=== PATIENT | male | born 1960 | race Caucasian/White ===

== ENCOUNTER → 2023-09-29 14:18 | Outpatient (BNVA) | payer OTHER, SELFPAY | PROVIDERS: Visit Provider Surgery | DX: K82.4 Cholesterolosis of gallbladder | CPT/HCPCS: 99203 ==

== ENCOUNTER 2023-10-26 08:22 | Outpatient (CLI) | payer OTHER, SELFPAY ==
--- NOTE | 2023-10-26 08:45 | US_ITS ---
WS: [id number] RIGHT UPPER QUADRANT ULTRASOUND HISTORY: biliary colic COMPARISON: None available. Liver: 17.0 cm in length. Normal size liver and echogenicity. No bile duct dilatation or mass. Portal Vein: Normal hepatopetal flow with monophasic waveform. Gallbladder: Mildly distended gallbladder. There is an 9 mobile nonshadowing focus in the gallbladder measuring 3 mm consistent with a hyperplastic polyp. No wall thickening. CBD: 0.3 cm Pancreas: Normal size and echogenicity. Right kidney: 10.7 cm in length. Normal size kidney with a tiny cortical cyst measures 9 x 9 x 7 mm. Aorta and IVC: Unremarkable abdominal aorta and IVC. No ascites. US/US gall bladder 82413 IMPRESSION: 1. No cholelithiasis. 2. Small hyperplastic gallbladder polyp measuring 9 mm. 3. Tiny cortical RIGHT renal cyst with a maximal diameter of 9 mm.
== END 2023-10-26 08:23 | disposition home or self-care (01) ==
LOC: RAD 08:22
PROVIDERS: Visit Provider Surgery
DX: K80.50 Calculus of bile duct without cholangitis or cholecystitis without obstruction (principal)
CPT/HCPCS: 76705

== ENCOUNTER → 2023-10-28 15:05 | Outpatient (BNVA) | payer OTHER, SELFPAY | PROVIDERS: Visit Provider Surgery | DX: Z09 Encounter for follow-up examination after completed treatment for conditions other than malignant neoplasm (principal) | CPT/HCPCS: 99213 ==

== ENCOUNTER 2023-11-23 05:28 | Day surgery (SDC) | payer OTHER, SELFPAY ==
[2023-11-23] VITALS (11 sets, daily range): BP systolic 141–221; BP diastolic 81–102; PULSE 46–69; RESP 16–18; TEMP 36.1–36.4; O2SAT 98–100
--- NOTE | 2023-11-23 05:44 | W.PM.OPSFHP ---
Same Day Surgery H&P Indication for Procedure/HPI DATE OF PROCEDURE: November 23, 2023 CHIEF COMPLAINT/INDICATIONFOR SURGICAL PROCEDURE: Polyp of the gallblader PREOP DIAGNOSIS: polyp of the gallblader PLANNED PROCEDURE: Operation Date: 11/23/23 07:00 Proposed Procedures p Laparoscopic Cholecystectomy 26581, K82.4(Not Applicable) - Lenard Mccoy MD Medications/Allergies* Home Medications Medication Instructions Recorded Confirmed Type omeprazole 20 mg capsule,delayed 20 mg PO ONCE 09/29/23 11/20/23 History release promethazine 50 mg rectal mg MD ONCE PRN Nausea And Vomiting 09/29/23 10/28/23 History suppository (Promethegan) tamsulosin 0.4 mg capsule (Flomax) 0.4 mg PO DAILY 09/29/23 11/20/23 History Allergies/Adverse Reactions Allergy/AdvReac Type Severity Reaction Status Date / Time No Known Allergies Allergy Verified 11/20/23 10:34 Pertinent History/Comorbid Conditions* Family History (Updated 09/29/23 @ 14:28 by CHERI Ozuna) Heart disease Mother Cancer Mother unknown what kind Social History Smoking and tobacco/nicotine status: current every day tobacco/nicotine user Alcohol intake: current Alcohol intake frequency: few times a week Pertinent Exam Findings alert, oriented x 3 and clear to auscultation bilaterally Recommendations Surgery/Procedure today Coding Level of Care Code Acute Code for Chg Fwd
[2023-11-23] MEDS: sodium chloride 0.9% 1,000 ML 30 ML IV (06:12)
[2023-11-23] MEDS: ceFAZolin 2,000 MG in sodium chloride 0.9% (plus) 50 ML 100 MG IV (07:00)
[2023-11-23] MEDS: BUPivacaine 0.25% INJ 10 mL INJECTION (07:34)
[2023-11-23] MEDS: lidocaine-epi 1% 20 mL INJ 10 ML INJECTION (07:34)
--- NOTE | 2023-11-23 08:27 | PM.OP ---
Operative Report Date of procedure: November 23, 2023 Pre-op diagnosis: Gallbladder polyp Post-op diagnosis: Same Post-op findings: Normal biliary anatomy Procedure done: Laparoscopic cholecystectomy Specimens removed/disposition: Gallbladder Surgeon: Lenard Mccoy MD Divisional Merchandising Manager: nam or staff Estimated blood loss: 5 Complications: none Brief History: This is a 63-year-old male with symptomatic cholelithiasis and gallbladder polyp who presented for laparoscopic cholecystectomy. All risk and benefits were discussed as documented in my preop note. Procedure: Patient was brought into the hospital OR, he was placed in a supine position. General anesthesia was given. The abdomen was prepped and draped in the usual sterile fashion. The abdomen was accessed with an open technique in an infraumbilical location via 15 mm incision. A 12 mm Horne trocar was placed and fixed to the fascia with #0 Vicryl. Initial laparoscopy showed no evidence of visceral injury during entry. Additional 5 mm trocars were placed in the epigastrium right upper quadrant and from flank positions. This was done under direct visualization. The gallbladder was retracted cephalad from the fundus, I then grabbed the gallbladder infundibulum and retracted in the inferolateral direction to expose the hepatocystic triangle. The peritoneum anterior to hepatocystic triangle was opened, this opening was carried in the medial and lateral direction to the edges of the liver and then on the sides of the gallbladder to improve visualization. With careful blunt dissection and electrocautery I was able to encircle the cystic duct and cystic artery and elevate the lower third of the gallbladder from the liver bed, thus obtaining the critical view of safety. The cystic duct and artery were double clipped proximally and single clipped distally and transected. The gallbladder was removed from the liver using electrocautery. A small hole was made on the gallbladder during removal, bile leakage was completely removed with suction irrigation. The specimen was then retrieved via the umbilical trocar site in an Endo Catch bag. Additional irrigation of the liver bed was done, no evidence of bleeding or bile leak was noted. I then proceeded to close the umbilical trocar site using a Otf-Bia suture passer under direct visualization. The epigastrium and right upper quadrant trocars were removed under direct visualization the right flank trocar was used to evacuate the pneumoperitoneum and subsequently removed. The wounds were closed in layers using #4-0 Monocryl for the skin and Dermabond was applied. At the end of the procedure all counts were correct, the patient tolerated well the procedure, was extubated and transferred to the PACU in stable condition.
--- NOTE | 2023-11-23 08:37 | ANES.PREANE2 ---
Pre-Anesthetic Assessment Height/Weight: Height 1.83 m Weight 91.626 kg Temp Pulse Resp BP Pulse Ox O2 Del Method 97 F L 69 16 141/100 100 Room Air 11/23/23 05:57 11/23/23 05:57 11/23/23 05:57 11/23/23 05:57 11/23/23 05:57 11/23/23 05:57 Preop Diagnosis: polyp of the gallblader Operation Date: 11/23/23 07:00 Proposed Procedures p Laparoscopic Cholecystectomy 15769, K82.4(Not Applicable) - Lenard Mccoy MD Familial anesthetic complications: none Was Beta Opal taken within 24 hours: N/A Was Clonidine taken within 24 hours: N/A Last intake: Intake Last Liquid Date 11/22/23 Last Liquid Time 23:00 Last Solid Date 11/22/23 Last Solid Time 23:00 Social Tobacco and No alcohol Exam alert, oriented x 3 and regular rate & rhythm rhonchi Airway Submandibular: within normal limits Cervical ROM: within normal limits Mallampati: Class II Dentition: false Pulmonary Chronic Obstructive Pulmonary Disease GI Gastroesophageal Reflux Disease Anesthetic Plan ASA status: 3 Anesthesia: General Medications/Allergies Home Medications Medication Instructions Recorded Confirmed Last Taken Type omeprazole 20 mg capsule,delayed 20 mg PO ONCE 09/29/23 11/20/23 Unknown History release promethazine 50 mg rectal 50 mg WI ONCE PRN Nausea And 09/29/23 11/23/23 Unknown History suppository (Promethegan) Vomiting tamsulosin 0.4 mg capsule (Flomax) 0.4 mg PO DAILY 09/29/23 11/23/23 11/21/23 History meloxicam 7.5 mg tablet 7.5 mg PO DAILY 7 days #7 tabs 11/23/23 Unknown Rx oxycodone 5 mg tablet 5 mg PO Q8H PRN pain 5 days #14 11/23/23 Unknown Rx tabs Allergies Allergy/AdvReac Type Severity Reaction Status Date / Time No Known Allergies Allergy Verified 11/20/23 10:34 Current Medications Generic Name Dose Route Start Last Admin Trade Name Freq PRN Reason Stop Dose Admin Sodium Chloride 1,000 mls @ 30 mls/hr 11/23/23 05:45 11/23/23 06:12 Sodium Chloride 0.9% IV 07/02/24 05:44 30 mls/hr .Q24H MARYANA Administration PFSH Anesthesia Family History Mother Cancer unknown what kind Heart disease Social History Smoking and tobacco/nicotine status: current every day tobacco/nicotine user Alcohol intake: current Alcohol intake frequency: few times a week Data Anesthesia Cardiac Studies: No Data to Display
[2023-11-23] MEDS: hyDRALAzine 20 mg/mL INJ 1 mL 10 MG IVP (08:48)
[2023-11-23] MEDS: oxyCODONE 5 mg IR Tab/Cap PO (09:40)
--- NOTE | 2023-11-23 15:42 | ANE.PACU2 ---
Inpatient post-anesthesia follow up: Airway intact: Yes Vital signs: Temperature 97.5 F Pulse Rate 66 Respiratory Rate 18 Blood Pressure 152/90 Pulse Oximetry 98 Oxygen Delivery Me thod Room Air Oxygen Flow Rate 6 Fraction of Inspir ed Oxygen Hydration adequate: Yes Nausea and vomiting: No Pain level: 3 Mental status: Baseline
== END 2023-11-23 09:56 | disposition home or self-care (01) ==
PROVIDERS: PCP Family Medicine; Visit Provider Surgery
PROC: 0FT44ZZ Resection of Gallbladder, Percutaneous Endoscopic Approach (ICD-10-PCS; CPT 47562; principal; 2023-11-23 07:00)
DX: K81.1 Chronic cholecystitis (principal); J44.9 Chronic obstructive pulmonary disease, unspecified; K21.9 Gastro-esophageal reflux disease without esophagitis; F17.200 Nicotine dependence, unspecified, uncomplicated
CPT/HCPCS: 47562; 88304; J0360; J0690; J1100; J1885; J2405; J2704; J2710; J3010; J3490; J7030